=== PATIENT | male | born 1955 | race Caucasian/White ===

== ENCOUNTER 2018-08-15 11:31 | Observation (INO) | payer OTHER, SELFPAY ==
[2018-08-15 12:30] LABS: #Basophils 0.1 thou/uL (0.0-0.2); #Eosinphils 0.1 thou/uL (0.0-0.7); #Lymphocytes 2.8 thou/uL (1.20-3.40); #Monocytes 0.7 thou/uL (0.11-0.59); #Neutrophils 4.6 thou/uL (1.40-6.50); %Basophils 0.6 % (0.0-1.0); %Eosinophils 0.8 % (0.0-10.0); %Lymphocytes 34.4 % (21.0-51.0); %Monocytes 8.2 % (0.0-10.0); %Neutrophils 55.9 % (42.0-75.0); Hemoglobin 16.3 g/dL (14.0-18.0); Mean Corpuscular HGB CONC 32.1 g/dL (32.0-36.0); Mean Corpuscular Hemoglobin 32.1 pg (27.0-31.0); Mean Corpuscular Volume 99.9 fL (78.0-98.0); Mean Platelet Volume 7.9 fL (7.4-10.4); Platelet Count 231 thou/uL (130-400); RBC Distribution Width 11.6 % (11.5-14.5); White Blood Cell (WBC) Count 8.2 thou/uL (4.8-10.8)
[2018-08-15 12:46] LABS: ALT (SGPT) 80 U/L (8-55); AST (SGOT) 91 U/L (5-34); Albumin 3.6 g/dL (3.4-4.8); Alkaline Phosphatase 87 U/L (40-150); Anion Gap 10 mmol/L (10-20); BUN (Urea Nitrogen) 20 mg/dL (8.4-25.7); Bilirubin, Total 0.7 mg/dL (0.2-1.2); CK (CPK) 53 U/L (30-200); Calc. Creatinine Clearance 0 mL/min (70-130); Carbon Dioxide 25 mmol/L (23-31); Chloride 105 mmol/L (98-107); Estimated GFR-MDRD Greater than 90; Globulin 3.7 g/dL (2.4-3.5); Glucose 99 mg/dL (80-115); Potassium 4.6 mmol/L (3.5-5.1); Protein, Total 7.3 g/dL (5.8-8.1); Sodium 135 mmol/L (136-145)
[2018-08-15 12:50] LABS: CKMB 1.6 ng/mL (0-6.6); Troponin I Less than 0.010 ng/mL (< 0.028)
--- NOTE | 2018-08-15 13:08 | CT ---
CT BRAIN WITHOUT CONTRAST: Comparison: 04-17-17 History: Bilateral leg weakness that began this morning, altered mental status. Technique: Multiple contiguous axial images were obtained in a CT of the brain without contrast. FINDINGS: There are scattered hypodensities in the subcortical and periventricular white matter, likely seconda ry to small vessel ischemic disease. No large confluent infarction is seen. There is no evidence of h ydrocephalus, intracranial hemorrhage or extraaxial fluid collection. The calvarium and overlying soft tissues are unremarkable. The visualized paranasal sinuses and masto id air cells are well aerated. IMPRESSION: No evidence of acute intracranial abnormalities. POS: [facility]
[2018-08-15 13:42] LABS: Bilirubin Negative (Negative); Blood, Urine Negative (Negative); Clarity CLEAR (Clear); Glucose, Urine (Dipstick) Negative (Negative); Leukocyte Negative (Negative); Nitrite Negative (Negative); Protein, Urine (Dipstick) Negative (Neg-Trace); Specific Gravity, Urine 1.016 (1.002-1.036); pH, Urine 6.5 (5.0-9.0)
[2018-08-15 13:57] LABS: Amphetamine Not Detected (NotDetected); Barbiturates Screen Not Detected (NotDetected); Benzodiazepine Screen Not Detected (NotDetected); Cocaine Metabolite Screen Not Detected (NotDetected); Medtox Control Line Valid? VALID (VALID); Medtox Reader # READER 1; Methadone Not Detected (NotDetected); Methamphetamine Not Detected (NotDetected); Opiate Screen Not Detected (NotDetected); Oxycodone Screen Not Detected (NotDetected); Phencyclidine (PCP) Not Detected (NotDetected); THC/Cannabinoid Screen Not Detected (NotDetected); Tricyclic Screen Not Detected (NotDetected)
--- NOTE | 2018-08-15 13:58 | RAD ---
PORTABLE CHEST ONE VIEW: Date: 08-15-18 Time: 11:41 a.m. History: 63-year-old male with cough. FINDINGS: Comparison is made with exam of 02-09-2009. The heart size is normal. The lungs are well expanded without lobar consolidation, pneumothoraces or pleural effusions. Old left sided rib fractures are again noted. IMPRESSION: No radiographic evidence of acute cardiopulmonary process. POS: [facility]
[2018-08-15 14:04] LABS: Prothrombin Time 13.1 SEC (12.0-14.7)
[2018-08-15] MEDS ORDERED: Aspirin 325 MG TAB ONE (14:11)
--- NOTE | 2018-08-15 14:14 | PDOC.FPRHP ---
- History of Present Illness Chief Complaint: LLE Weakness History of Present Illness: Patient is a 63YO gentleman with a PMH significant for a prior CVA in 2008 w/ residual L-sided weakness, untreated Hepatitis C, HTN, a possible seizure disorder, and possible dementia who presented to the ED after having an episode of sudden onset LLE weakness while walking with AM. Per the patient and chart review/patient's family, the patient was walking this morning per his usual routine and suddenly felt like he could no longer bear weight in his left leg. He denies any fall or LOC and reports that the weakness lasted only for a few minutes and then resolved on its own. He denies any associated LUE weakness , headache, dysarthria, numbness, or tingling as well. ED Course: The patient received 325mg of ASA in the ED. - Allergies/Adverse Reactions Allergies Allergy/AdvReac Type Severity Reaction Status Date / Time No Known Drug Allergies Allergy Verified 08/15/18 17:04 - Home Medications Medication Instructions Recorded Confirmed Type Lisinopril [Zestril] 10 mg PO DAILY #30 tab 04/23/17 08/15/18 Rx Metoprolol Tartrate [Lopressor] 25 mg PO BID #60 tab 04/23/17 08/15/18 Rx Santyl 250 Units/Gram Ointment 1 gm TOP DAILY #1 tube 04/23/17 08/15/18 Rx [Santyl Ointment] Aspirin [Ecotrin] 81 mg PO DAILY 08/15/18 08/15/18 History - History PMHx: CVA, HFpEF, chronic hepatitis C, HTN, Dementia, possible seizure disorder PSHx: none FHx: h/o Alcoholism and cirrhosis in multiple family members per patient's sister Social: Former heavy alcohol use of ~10 beers/day per patient but quit drinking years ago. Former marijuana use. Current smoker. Has smoked ~1/2ppd since age 26. Smokes a little <1ppd currently. Lives with his sister, Nicloe, in [place]. - Review of Systems General: denies: fever/chills, weight/appetite/sleep changes Eyes: denies: vision changes ENT: denies: nasal congestion, rhinorrhea Respiratory: denies: cough, congestion, shortness of breath Cardiovascular: denies: chest pain, edema Gastrointestinal: denies: diarrhea, constipation, abdominal pain, GI bleeding Genitourinary: reports: other (no frequency). denies: dysuria Skin: reports: rashes. denies: itching Musculoskeletal: denies: swelling, arthritis/arthralgias Neurological: reports: weakness. denies: numbness, syncope Psychological: denies: anxiety, depression - Vital signs BP: 124/76 HR: 69 RR: 16 Tmax: 98.6F Pox: 94% on RA Wt: 62.6kg - Physical Exam Constitutional: NAD, other (poorly developed, awake and alert but oriented only to self) HEENT: normocephalic and atraumatic, PERRLA, EOMI, conjunctiva clear, grossly normal vision (wears glasses), grossly normal hearing, MMM, oropharynx clear Neck: supple, FROM Chest: no-tender to palpation Heart: RRR, normal S1/S2, pulses present, no edema Lungs: no respiratory distress, good air movement, no rales/rhonchi, no retractions -Lungs: expiratory wheezing in B/L upper lung goss, R>L Abdomen: soft, non-tender, bowel sounds present Musculoskeletal: normal structure, normal tone Neurological: CN II-XII intact, normal sensation -Neurological: 4/5 automobile and property underwriter strength and plantar flexion strength on the L compared to the R. Dysmetria in LUE as well. Careful, broad-based gait w/ negative Romberg's sign. Skin: good turgor, capillary refill <2 seconds, no jaundice -Skin: seborrheic dermatitis in brow between eyes and behind B/L ears; palmar erythema and spider telangiectasias noted on chest Heme/Lymphatic: no unusual bruising or bleeding, no purpura Psychiatric: normal mood and affect, other (intact recent memory from this AM) FMR H&P: Results - Labs Result Diagrams: 08/15/18 12:15 08/15/18 12:15 Lab results: WBC 8.2 thou/uL (4.8-10.8) 08/15/18 12:15 Hgb 16.3 g/dL (14.0-18.0) 08/15/18 12:15 Hct 50.9 % (42.0-52.0) 08/15/18 12:15 MCV 99.9 fL (78.0-98.0) H 08/15/18 12:15 Plt Count 231 thou/uL (130-400) 08/15/18 12:15 Neutrophils % 55.9 % (42.0-75.0) 08/15/18 12:15 Sodium 135 mmol/L (136-145) L 08/15/18 12:15 Potassium 4.6 mmol/L (3.5-5.1) 08/15/18 12:15 Chloride 105 mmol/L (98-107) 08/15/18 12:15 Carbon Dioxide 25 mmol/L (23-31) 08/15/18 12:15 BUN 20 mg/dL (8.4-25.7) 08/15/18 12:15 Creatinine 0.81 mg/dL (0.6-1.3) 08/15/18 12:15 Glucose 99 mg/dL (80-115) 08/15/18 12:15 Calcium 9.0 mg/dL (7.8-10.44) 08/15/18 12:15 Total Bilirubin 0.7 mg/dL (0.2-1.2) 08/15/18 12:15 AST 91 U/L (5-34) H 08/15/18 12:15 ALT 80 U/L (8-55) H 08/15/18 12:15 Alkaline Phosphatase 87 U/L (40-150) 08/15/18 12:15 Ammonia 38 umol/L (18-72) 08/15/18 12:15 Creatine Kinase 53 U/L (30-200) 08/15/18 12:15 CK-MB (CK-2) 1.6 ng/mL (0-6.6) 08/15/18 12:15 Serum Total Protein 7.3 g/dL (5.8-8.1) 08/15/18 12:15 Albumin 3.6 g/dL (3.4-4.8) 08/15/18 12:15 Urine Ketones Negative mg/dL (Negative) 08/15/18 13:13 Urine Blood Negative (Negative) 08/15/18 13:13 Urine Nitrite Negative (Negative) 08/15/18 13:13 Ur Leukocyte Esterase Negative (Negative) 08/15/18 13:13 - Radiology Interpretation CT scan - head Status: report reviewed by me (No acute IC process) Chest x-ray Status: report reviewed by me (no acute cardiopulmonary process) FMR H&P: A/P - Problem List (1) Left-sided weakness Current Visit: Yes Status: Resolved Code(s): R53.1 - WEAKNESS (2) Transient ischemic attack Current Visit: No Status: Suspected (3) H/O: CVA (cerebrovascular accident) Current Visit: No Status: Chronic Code(s): Z86.73 - PRSNL HX OF TIA (TIA), AND CEREB INFRC W/O RESID DEFICITS (4) HTN (hypertension) Current Visit: No Status: Chronic Code(s): I10 - ESSENTIAL (PRIMARY) HYPERTENSION (5) Hep C w/o coma, chronic Current Visit: No Status: Chronic Code(s): B18.2 - CHRONIC VIRAL HEPATITIS C (6) Tobacco abuse Current Visit: No Status: Chronic Code(s): Z72.0 - TOBACCO USE - Plan 63 YO gentleman w/ a PMH significant for a h/o a CVA, h/o EtOH abuse, chronic Hep C, and dementia who presented with the ED w/ a CC of Left lower extremity weakness that occurred this morning while walking. Transient LLE weakness 2/2 suspected TIA - Symptoms have completed resolved since arrival to the ED. - CT negative for any acute IC process. - High suspicion for possible TIA due to h/o CVA and tobacco use. - Will obtain and MRI in the AM as well as carotid doppler U/S. - Will risk stratify and obtain a Hgb A1c as well as a FLP in the AM. - Will start on QD ASA and a low dose statin due to transaminitis. - Will consult stroke team and neurology. Transaminitis - Likely 2/2 chronic untreated Hep C per history. Will obtain Hep C Ag and RNA quantitiative studies to confirm diagnosis. - Will obtain a RUQ U/S to evaluate liver closely as patient has multiple findings on clinical exam consistent w/ cirrhosis including palmar erythema and spider telangiectasias. - Will check for HIV and RPR as well. - Will continue to trend LFTs for hospital course. Dementia/cognitive impairment - Could be 2/2 vascular and/or some component of Wernicke's encephalopathy 2/2 former heavy EtOH use. - Will obtain vitamin B1, B12, and folate levels. - Also checking HIV and RPR to r/o infectious etiologies. - TSH and NH3 WNLs. - Will start on a QD multivitamin. Chronic Hepatitis C - Patient has been diagnosed with this in the past per his sister and chart review. - No records of positive tests in our EMR so will order Hep C studies for diagnosis confirmation. h/o CVA - Aware, will start on QD ASA and low dose statin. h/o EtOH Abuse - Aware, but no QD drinking for the past several years per patient's sister. - Will hold off on ASE protocol for now. - Will continue to monitor vitals closely. HTN - Will resume home meds. tobacco use - Nicotine patch. - Will encourage cessation. - Duonebs PRN. FMR H&P: Upper Level - Pertinent history Pt is a 63 year old male who presents to the ED with sudden onset left lower extremity weakness. Pt states that he is currently back to his baseline and weakness has resolved. He has a prior history of CVA in 2009 and TIA in 2017. - Pertinent findings Physical Exam: General: Alert and oriented to person and place only. Neurological: CN II-XII intact grossly; 4/5 LUE strength, 5/5 otherwise throughout. upper extremity DTRs 2+ bilaterally; downgoing babinski bilaterally ; No asterixis. Broad-based gait; negative Romberg. Skin: spider telengectasias on anterior chest Extremities: no structural abnormalities; no peripheral edema. - Plan Date/Time: 08/15/18 1414 I, Fara Rowe, have evaluated this patient and agree with findings/plan as outlined by internet marketer resident. Pertinent changes/additions are listed here. TIA/CVA rule out - will admit pt to stroke unit for obs. ASA 325 given in ED. - sudden onset, left lower extremity weakness, worse from baseline. Resolved per patient. - Non contrast CTA negative. - Risk stratification with A1C, FLP. Will add on carotid dopplers and MRI to check for acute ischemia. Cognitive dysfunction - differentials include vascular dementia, Wernicke's encephalopathy given history of alcohol abuse. - will check B12, B1, RPR. TSH/NH3 wnl. - may consider MOCA/SLUMS to assess degree of encephalopathy. Abnormal liver function tests. - possibly secondary to history of alcohol abuse vs. hepatitis C. - RUQ US. - will re-check hepatitis studies. Hypertension - will resume pt's home medications when we are able to confirm with his sister. History of alcohol abuse. - pt denies heavy drinking, but due to pt's poor ability to give history, will confirm with his sister. - consider initiating ASE protocol History of Tobacco abuse. - nicotine patch. Attending Addendum - Attending Addendum Date/Time: 08/15/182052 I personally evaluated the patient and discussed the management with Dr. Rowe and team. I agree with the History, Examination, Assessment and Plan documented above with any addition or exceptions noted below.
--- NOTE | 2018-08-15 14:19 | PDOC.FPRHP ---
- Allergies/Adverse Reactions Allergies Allergy/AdvReac Type Severity Reaction Status Date / Time No Known Drug Allergies Allergy Verified 04/18/17 03:39 - Home Medications Medication Instructions Recorded Confirmed Type Aspirin [Ecotrin Regular Strength] 325 mg PO DAILY #30 tab 04/23/17 Rx Atorvastatin Calcium [Lipitor] 40 mg PO HS #30 tab 04/23/17 Rx Lisinopril [Zestril] 10 mg PO DAILY #30 tab 04/23/17 Rx Metoprolol Tartrate [Lopressor] 25 mg PO BID #60 tab 04/23/17 Rx Santyl 250 Units/Gram Ointment 1 gm TOP DAILY #1 tube 04/23/17 Rx [Santyl Ointment] - History PMHx: PSHx: FHx: Social: - Vital signs BP: [] HR: [] RR: [] Tmax: [] Pox: []% on [] Wt: [] FMR H&P: Results - Labs Result Diagrams: 08/15/18 12:15 08/15/18 12:15 Lab results: WBC 8.2 thou/uL (4.8-10.8) 08/15/18 12:15 Hgb 16.3 g/dL (14.0-18.0) 08/15/18 12:15 Hct 50.9 % (42.0-52.0) 08/15/18 12:15 MCV 99.9 fL (78.0-98.0) H 08/15/18 12:15 Plt Count 231 thou/uL (130-400) 08/15/18 12:15 Neutrophils % 55.9 % (42.0-75.0) 08/15/18 12:15 Sodium 135 mmol/L (136-145) L 08/15/18 12:15 Potassium 4.6 mmol/L (3.5-5.1) 08/15/18 12:15 Chloride 105 mmol/L (98-107) 08/15/18 12:15 Carbon Dioxide 25 mmol/L (23-31) 08/15/18 12:15 BUN 20 mg/dL (8.4-25.7) 08/15/18 12:15 Creatinine 0.81 mg/dL (0.6-1.3) 08/15/18 12:15 Glucose 99 mg/dL (80-115) 08/15/18 12:15 Calcium 9.0 mg/dL (7.8-10.44) 08/15/18 12:15 Total Bilirubin 0.7 mg/dL (0.2-1.2) 08/15/18 12:15 AST 91 U/L (5-34) H 08/15/18 12:15 ALT 80 U/L (8-55) H 08/15/18 12:15 Alkaline Phosphatase 87 U/L (40-150) 08/15/18 12:15 Ammonia 38 umol/L (18-72) 08/15/18 12:15 Creatine Kinase 53 U/L (30-200) 08/15/18 12:15 CK-MB (CK-2) 1.6 ng/mL (0-6.6) 08/15/18 12:15 Serum Total Protein 7.3 g/dL (5.8-8.1) 08/15/18 12:15 Albumin 3.6 g/dL (3.4-4.8) 08/15/18 12:15 Urine Ketones Negative mg/dL (Negative) 08/15/18 13:13 Urine Blood Negative (Negative) 08/15/18 13:13 Urine Nitrite Negative (Negative) 08/15/18 13:13 Ur Leukocyte Esterase Negative (Negative) 08/15/18 13:13 FMR H&P: Upper Level - Plan Date/Time: 08/15/18 1410 I, [], have evaluated this patient and agree with findings/plan as outlined by internet marketing coordinator resident. Pertinent changes/additions are listed here.
[2018-08-15 14:49] LABS: Acetaminophen Less than 6.0 mcg/mL (10.0-30.0); Alcohol Less than 10 mg/dL (Less than 10); Salicylate Less than 8.0 mg/dL (15.0-30.0)
[2018-08-15] MEDS ORDERED: Ibuprofen 600 MG TAB PO PRN (16:19)
[2018-08-15 16:27] LABS: Troponin I Less than 0.010 ng/mL (< 0.028)
[2018-08-15 17:00] VITALS: BMI 20.3
[2018-08-15] MEDS: Nicotine 14 MG PATCH TD SCH (18:42)
[2018-08-15 18:55] LABS: Troponin I Less than 0.010 ng/mL (< 0.028)
[2018-08-15 19:29] LABS: Hemoglobin A1c 5.4 % (4.0-6.0)
[2018-08-15 19:58] LABS: Cardiac Risk 6.2 (Less than 4.5)
[2018-08-15] MEDS ORDERED: Simvastatin 5 MG TAB PO SCH ×2 (21:00)
[2018-08-15] MEDS: Enoxaparin Sodium 40 MG/0.4 ML SYRINGE SC SCH (21:07)
[2018-08-15] MEDS: Metoprolol Tartrate 25 MG TAB PO SCH (21:08)
[2018-08-16 05:24] LABS: ALT (SGPT) 73 U/L (8-55); AST (SGOT) 82 U/L (5-34); Albumin 3.3 g/dL (3.4-4.8); Alkaline Phosphatase 93 U/L (40-150); Anion Gap 12 mmol/L (10-20); BUN (Urea Nitrogen) 17 mg/dL (8.4-25.7); Bilirubin, Total 0.3 mg/dL (0.2-1.2); Calc. Creatinine Clearance 82 mL/min (70-130); Calcium 8.9 mg/dL (7.8-10.44); Carbon Dioxide 22 mmol/L (23-31); Chloride 105 mmol/L (98-107); Estimated GFR-MDRD Greater than 90; Globulin 3.7 g/dL (2.4-3.5); Glucose 96 mg/dL (80-115); Potassium 4.4 mmol/L (3.5-5.1); Sodium 135 mmol/L (136-145)
[2018-08-16 05:43] LABS: Syphilis Antibody Index 10.22 S/CO (<1.00 Non-Reactive)
[2018-08-16 06:03] LABS: Folate (Folic Acid) 12.2 ng/mL (7.0-31.4)
--- NOTE | 2018-08-16 06:25 | PDOC.FM ---
- Subjective Subjective: Patient was sitting up in bed eating breakfast in NAD. NAEO. Patient has no complaints this AM. - Objective MAR Reviewed: Yes Vital Signs & Weight: Vital Signs (12 hours) Temp Pulse Resp BP Pulse Ox 08/16/18 03:27 98.2 F 68 17 166/94 H 94 L 08/15/18 23:13 98.6 F 74 16 178/92 H 94 L 08/15/18 19:20 98.4 F 71 16 121/68 95 Weight Admit Weight 60.736 kg Weight 60.736 kg I&O: 08/14/18 08/15/18 08/16/18 06:59 06:59 06:59 Intake Total 555 Output Total 300 Balance 255 Result Diagrams: 08/15/18 12:15 08/16/18 04:12 <Nancy Veliz - Last Filed: 08/16/18 10:09> - Objective Vital Signs & Weight: Vital Signs (12 hours) Temp Pulse Resp BP BP Pulse Ox 08/16/18 11:33 98.9 F 62 16 114/68 93 L 08/16/18 08:03 144/96 H 08/16/18 07:33 98.6 F 64 16 144/96 H 92 L 08/16/18 03:27 98.2 F 68 17 166/94 H 94 L Weight Admit Weight 60.736 kg Weight 60.736 kg I&O: 08/15/18 08/16/18 08/17/18 06:59 06:59 06:59 Intake Total 555 280 Output Total 300 Balance 255 280 Result Diagrams: 08/15/18 12:15 08/16/18 04:12 <Celestine Dorantes - Last Filed: 08/16/18 12:33> Phys Exam - Physical Examination Constitutional: NAD HEENT: moist MMs, sclera anicteric Neck: supple, full ROM Respiratory: no rales, no rhonchi Cardiovascular: RRR, no significant murmur Gastrointestinal: soft, non-tender, positive bowel sounds Musculoskeletal: no edema, pulses present Neurological: normal sensation, moves all 4 limbs 4/5 strength in LUE compared to RUE which is 5/5 Psychiatric: normal affect Skin: normal turgor, cap refill <2 seconds Deviation from normal: seborrheic dermatitis on T zone of face and post- auricular areas <Nancy Veliz - Last Filed: 08/16/18 10:09> Dx/Plan (1) Left-sided weakness Code(s): R53.1 - WEAKNESS Status: Resolved (2) Transient ischemic attack Status: Suspected (3) H/O: CVA (cerebrovascular accident) Code(s): Z86.73 - PRSNL HX OF TIA (TIA), AND CEREB INFRC W/O RESID DEFICITS Status: Chronic (4) HTN (hypertension) Code(s): I10 - ESSENTIAL (PRIMARY) HYPERTENSION Status: Chronic (5) Hep C w/o coma, chronic Code(s): B18.2 - CHRONIC VIRAL HEPATITIS C Status: Chronic (6) Tobacco abuse Code(s): Z72.0 - TOBACCO USE Status: Chronic - Plan Plan: 63 YO gentleman w/ a PMH significant for a h/o a CVA, h/o EtOH abuse, chronic Hep C, and dementia who presented with the ED w/ a CC of Left lower extremity weakness that occurred this morning while walking. Transient LLE weakness 2/2 suspected TIA - Symptoms have completely resolved since admission. - CT negative for any acute IC process. MRI & carotid doppler U/S pending for this AM. - High suspicion for possible TIA due to h/o CVA and tobacco use. - Hgb A1c WNLs at 5.4 & FLP significant for triglycerides of 216 and total cholesterol of 180: LDL--> 108 & HDL --> 29. - Will continue QD ASA and start on high potency statin. - PT and OT consulted to see today. Transaminitis - LFTs slightly decreased compared to labs on admission. - Likely 2/2 chronic untreated Hep C per history. Hep C Ab level is high. Hep C RNA pending. - Abdominal U/S significant for heterogeneous liver echotexture w/o any focal mass suggestive of possible cirrhosis. - HIV and RPR pending. - Will continue to trend LFTs for hospital course. Dementia/cognitive impairment - Could be 2/2 vascular and/or some component of Wernicke's encephalopathy 2/2 former heavy EtOH use. - Vitamin B1 level pending. B12 & folate levels WNLs. Will check a RBC folate as well. - HIV and RPR pending. - TSH and NH3 WNLs. - Will continue QD multivitamin. - CM consulted to discuss goals of care with family and to eval for placement upon discharge. Chronic Hepatitis C - Patient has been diagnosed with this in the past per his sister and chart review. - No records of positive tests in our EMR. - initial Hep C Ab level is high. Hep C RNA pending. h/o CVA - Aware, will continue QD ASA and start on low dose high potency statin per pharmacy recs. h/o EtOH Abuse - Aware, but no QD drinking for the past several years per patient's sister. - Will hold off on ASE protocol for now. - Will continue to monitor vitals closely. HTN - Will continue home meds. tobacco use - Nicotine patch. - Will encourage cessation. - Colin PRN. Dispo: Possible d/c later today pending neuroimaging and evals from PT/OT & CM recs for dispo. <Nancy Veliz - Last Filed: 08/16/18 10:09> Attending Addendum - Attending Addendum Date/Time: 08/16/18 1233 I personally evaluated the patient and discussed the management with Dr. Veliz. I agree with the History, Examination, Assessment and Plan documented above with any addition or exceptions noted below. <Celestine Dorantes - Last Filed: 08/16/18 12:33>
[2018-08-16 06:27] LABS: Hep C IgG Ab Reflex HepC Qnt (NonReactive); Hep C Index 11.24 S/CO (0-0.79)
[2018-08-16] MEDS: Metoprolol Tartrate 25 MG TAB PO SCH ×2 (08:02→20:58)
[2018-08-16] MEDS: Multivitamin W/ Minerals 1 TAB PO SCH (08:02)
[2018-08-16] MEDS: Lisinopril 10 MG TAB PO SCH (08:03)
[2018-08-16] MEDS: Aspirin 81 mg Enteric Coated Tablet PO SCH (08:04)
[2018-08-16] MEDS: Collagenase 250 UNITS/GM Ointment 30 GM TUBE TOP SCH (08:07)
[2018-08-16] MEDS: Ketoconazole 2% Cream 15 gm Tube TOP SCH (08:08)
--- NOTE | 2018-08-16 08:09 | ULT ---
GALLBLADDER ULTRASOUND: HISTORY: Abnormal liver enzymes, bloating cirrhosis, with a history of hepatitis C and alcohol abuse. FINDINGS: Real-time imaging of the right upper quadrant was performed. This shows somewhat difficult to visual ize gallbladder due to bowel gas, but no gallstones identified. Liver parenchyma has a heterogeneous echotexture without any focal discrete mass and measures approximately 14 cm in length. Portions ar e obscured by bowel gas. The right kidney is normal in size and not obstructed. The pancreas is obscured. IMPRESSION: Heterogeneous liver echotexture without focal mass. No evidence of gallstones or biliary ductal dila tation. POS: [facility]
[2018-08-16 08:59] LABS: HIV (1/2) Antibody/Antigen Non-Reactive (NonReactive); HIV 1/2 INDEX 0.19 S/CO (<1.00)
--- NOTE | 2018-08-16 12:18 | MRI ---
MRI BRAIN WITHOUT CONTRAST: HISTORY: Bilateral leg weakness. Altered mental status. TIA. CORRELATION: The previous day's CT scan. FINDINGS: There are foci of T2 prolongation in the periventricular white matter, consistent with chronic small vessel ischemic disease. No restricted diffusion is seen. The ventricular size is appropriate, and the basilar cisterns are patent. No evidence of acute infarct, hemorrhage, midline shift, or abnorma l extraaxial fluid collections is noted. No tonsillar herniation is seen. There is mucosal disease in the paranasal sinuses. IMPRESSION: Chronic changes. No evidence of acute intracranial process. POS: [facility]
[2018-08-16 14:30] LABS: Syphilis Antibody INDETERMINATE (Nonreactive); Syphilis Titer Non-Reactive (Negative)
--- NOTE | 2018-08-16 17:23 | PDOC.EVN ---
Event Note - Event Note Event Note: Spoke with patient's son, Jaylen Erazo @ ~17:15 via telephone to confirm MPOA preference. Son stated that he would like to defer his medical decision making responsibilities to the patient's sister and track car operator, Nicole Erazo, as he is confident she will make good, safe, and appropriate medical decisions for the patient.
[2018-08-16] MEDS: Nicotine 14 MG PATCH TD SCH (17:52)
--- NOTE | 2018-08-16 19:12 | ULT ---
CAROTID ULTRASOUND: 08/16/18 HISTORY: Possible TIA . Possible CVA. COMPARISON: 02/10/09 TECHNIQUE: [place] scale, color flow, doppler imaging with spectral waveform analysis was performed of the carotid and vertebral arteries. FINDINGS: RIGHT CAROTID: Intimal thickening of the common carotid artery is 0.12 cm. There is a small amount of noncalcified p laque in the right carotid bifurcation and proximal right internal carotid artery. Peak systolic [place] of the common carotid artery is 36.7 cm/s. Peak systolic velocity of internal carotid artery is 72.9 cm/s. ICA to CCA ratio is 2.0. LEFT CAROTID: Intimal thickening of the common carotid artery is 0.07 cm. There is noncalcified plaque in the dista l common carotid artery. There is noncalcified and calcified plaque in the left carotid bifurcation a nd proximal internal carotid artery. Peak systolic velocity of the common carotid artery is 80.3 cm/s . Peak systolic velocity of internal carotid artery is 65.0 cm/s. ICA to CCA ratio is 0.80. Antegrade flow in both vertebral arteries. IMPRESSION: No sonographic evidence of hemodynamically significant stenosis. POS: [facility]
[2018-08-16] MEDS: Enoxaparin Sodium 40 MG/0.4 ML SYRINGE SC SCH (20:58)
[2018-08-16] MEDS ORDERED: Atorvastatin Calcium 40 MG TAB PO SCH (21:00)
--- NOTE | 2018-08-17 06:25 | PDOC.FM ---
- Subjective Subjective: NAEO. Patient was attempting to order breakfast via the telephone at the time of exam. Was sitting up in bed in NAD. Has no complaints this AM. - Objective MAR Reviewed: Yes Vital Signs & Weight: Vital Signs (12 hours) Temp Pulse Resp BP Pulse Ox 08/17/18 04:00 98.2 F 79 19 161/87 H 92 L 08/16/18 23:55 99.6 F 73 19 142/81 H 93 L 08/16/18 20:00 99.8 F H 78 18 155/89 H 94 L Weight Admit Weight 60.736 kg Weight 60.736 kg I&O: 08/15/18 08/16/18 08/17/18 06:59 06:59 06:59 Intake Total 555 590 Output Total 300 Balance 255 590 Result Diagrams: 08/15/18 12:15 08/17/18 06:53 <Nancy Veliz - Last Filed: 08/17/18 13:43> - Objective Vital Signs & Weight: Vital Signs (12 hours) Temp Pulse Pulse Pulse Resp BP BP 08/17/18 15:57 99.7 F H 71 20 08/17/18 11:55 99.6 F 71 20 08/17/18 10:17 76 69 126/73 08/17/18 09:44 117/73 08/17/18 08:00 98.7 F 73 20 BP BP Pulse Ox 08/17/18 15:57 107/60 92 L 08/17/18 11:55 111/68 91 L 08/17/18 10:17 110/70 08/17/18 09:44 08/17/18 08:00 106/70 90 L Weight Admit Weight 60.736 kg Weight 60.736 kg I&O: 08/16/18 08/17/18 08/18/18 06:59 06:59 06:59 Intake Total 555 590 480 Output Total 300 Balance 255 590 480 Result Diagrams: 08/15/18 12:15 08/17/18 06:53 <Celestine Dorantes - Last Filed: 08/17/18 16:01> Phys Exam - Physical Examination Constitutional: NAD HEENT: moist MMs, sclera anicteric Neck: supple, full ROM Respiratory: no wheezing, no rales, no rhonchi, clear to auscultation bilateral Cardiovascular: RRR, no significant murmur Gastrointestinal: soft, no distention, positive bowel sounds Musculoskeletal: no edema Neurological: normal sensation, moves all 4 limbs 4/5 strength in LUE compared to the R Psychiatric: normal affect Skin: normal turgor, cap refill <2 seconds Deviation from normal: improving seborrheic dermatitis on T zone of face and post-auricular areas <Nancy Veliz - Last Filed: 08/17/18 13:43> Dx/Plan (1) Left-sided weakness Code(s): R53.1 - WEAKNESS Status: Resolved (2) Transient ischemic attack Status: Acute (3) H/O: CVA (cerebrovascular accident) Code(s): Z86.73 - PRSNL HX OF TIA (TIA), AND CEREB INFRC W/O RESID DEFICITS Status: Chronic (4) HTN (hypertension) Code(s): I10 - ESSENTIAL (PRIMARY) HYPERTENSION Status: Chronic (5) Hep C w/o coma, chronic Code(s): B18.2 - CHRONIC VIRAL HEPATITIS C Status: Chronic (6) Tobacco abuse Code(s): Z72.0 - TOBACCO USE Status: Chronic (7) Dementia Code(s): F03.90 - UNSPECIFIED DEMENTIA WITHOUT BEHAVIORAL DISTURBANCE Status: Acute - Plan Plan: 63 YO gentleman w/ a PMH significant for a h/o a CVA, h/o EtOH abuse, chronic Hep C, and dementia who presented with the ED w/ a CC of Left lower extremity weakness that occurred this morning while walking. Transient LLE weakness 2/2 suspected TIA - Symptoms have completely resolved since admission. - CT & MRI negative for any acute IC process. Carotid dopplers showed no HD significant stenosis. - Sxs therefore mostly likely 2/2 a TIA due to h/o CVA and tobacco use. - Hgb A1c WNLs at 5.4 & FLP significant for triglycerides of 216 and total cholesterol of 180: LDL--> 108 & HDL --> 29. - Will continue QD ASA and pediatric genetic counselor on need to be on a high potency statin. - PT recommended home w/ HH PT. Dementia/cognitive impairment - Likely 2/2 vascular and/or some component of Wernicke's encephalopathy 2/2 former heavy EtOH use. - Vitamin B1 level pending. B12 & folate levels WNLs. Will check a RBC folate as well. - HIV nonreactive and RPR indeterminate. FTA-ABS pending for confirmation. - TSH and NH3 WNLs. - Will continue QD multivitamin. - CM met with family/patient's sister to assist with resources upon discharge. - Patient has consistently been oriented only to self since admission and had been determined to lack the mental capacity to make the best and most appropriate medical decisions for himself. Legal MPOA is on, Jaylenmichelle Erazo, who has deferred these responsibilities to patient's sister and trailer body assembler, Nicole Erazo. Hyperkalemia - K of 5.2 this AM. - Patient completely asymptomatic on exam. - Will continue to monitor. Transaminitis - LFTs have continued to downtrend since admission. - Likely 2/2 chronic untreated Hep C per history. Hep C Ab level is high. Hep C RNA pending. - Abdominal U/S significant for heterogeneous liver echotexture w/o any focal mass suggestive of possible cirrhosis. - Will continue to trend LFTs for hospital course. Chronic Hepatitis C - Patient has been diagnosed with this in the past per his sister and chart review. - No records of positive tests in our EMR. - Initial Hep C Ab level is high. Hep C RNA pending. h/o CVA - Aware, will continue QD ASA and encourage patient to take a low dose high potency statin per pharmacy recs. h/o EtOH Abuse - Aware, but no QD drinking for the past several years per patient's sister. - Will hold off on ASE protocol for now. - Will continue to monitor vitals closely. HTN - Will continue home meds. tobacco use - Nicotine patch. - Will encourage cessation. - Colin PRN. Dispo: Likely d/c home later today with HH for PT once patient has established w / a PCP. <Nancy Veliz - Last Filed: 08/17/18 13:43> Attending Addendum - Attending Addendum Date/Time: 08/17/18 1601 I personally evaluated the patient and discussed the management with Dr. Veliz. I agree with the History, Examination, Assessment and Plan documented above with any addition or exceptions noted below. <Celestine Dorantes - Last Filed: 08/17/18 16:01>
[2018-08-17 07:19] LABS: ALT (SGPT) 64 U/L (8-55); AST (SGOT) 57 U/L (5-34); Albumin 3.5 g/dL (3.4-4.8); Alkaline Phosphatase 78 U/L (40-150); Anion Gap 12 mmol/L (10-20); BUN (Urea Nitrogen) 21 mg/dL (8.4-25.7); Bilirubin, Total 1.2 mg/dL (0.2-1.2); Calc. Creatinine Clearance 63 mL/min (70-130); Calcium 9.4 mg/dL (7.8-10.44); Carbon Dioxide 25 mmol/L (23-31); Chloride 102 mmol/L (98-107); Estimated GFR-MDRD 72; Globulin 3.7 g/dL (2.4-3.5); Glucose 119 mg/dL (80-115); Potassium 5.2 mmol/L (3.5-5.1); Protein, Total 7.2 g/dL (5.8-8.1); Sodium 134 mmol/L (136-145)
[2018-08-17] MEDS: Metoprolol Tartrate 25 MG TAB PO SCH (09:43)
[2018-08-17] MEDS: Multivitamin W/ Minerals 1 TAB PO SCH (09:43)
[2018-08-17] MEDS: Lisinopril 10 MG TAB PO SCH (09:44)
[2018-08-17] MEDS: Ketoconazole 2% Cream 15 gm Tube TOP SCH (09:45)
[2018-08-17] MEDS: Aspirin 81 mg Enteric Coated Tablet PO SCH (09:45)
[2018-08-17] MEDS: Collagenase 250 UNITS/GM Ointment 30 GM TUBE TOP SCH (09:45)
[2018-08-17] MEDS ORDERED: Lisinopril 10 MG TAB PO SCH (10:12)
[2018-08-17 14:23] LABS: Folate,Hemolysate 542.1 ng/mL (Not Estab.); Hematocrit 47.4 % (37.5-51.0); RBC Folate Test Component 1144 ng/mL (>498)
[2018-08-17 15:59] VITALS: BP 107/60; TEMP 99.7
[2018-08-17] MEDS: Nicotine 14 MG PATCH TD SCH (17:46)
[2018-08-18 19:17] LABS: HCV log10 6.057 (.); Hep C PCR-Quant 1140000 IU/mL (.)
--- NOTE | 2018-08-20 21:28 | EKG ---
Test Reason : Blood Pressure : / mmHG Vent. Rate : 069 BPM Atrial Rate : 069 BPM P-R Int : 152 ms QRS Dur : 082 ms QT Int : 432 ms P-R-T Axes : 038 -12 032 degrees QTc Int : 462 ms Normal sinus rhythm Normal ECG Confirmed by ADALBERTO GARCIA MD ([id number]), online editor BRUNA PALMA ([id number]) on 08/20/2018 9:28:03 PM Referred By: Confirmed By:ADALBERTO GARCIA MD
== END 2018-08-17 17:35 | disposition home health service (06) ==
LOC: ERS 11:31 → 2SE 16:10
PROVIDERS: ADMIT Family Medicine; ATTEND Family Medicine
DX: R53.1 Weakness (principal); I10 Essential (primary) hypertension; B18.2 Chronic viral hepatitis C; F17.200 Nicotine dependence, unspecified, uncomplicated; Z86.73 Personal history of transient ischemic attack (TIA), and cerebral infarction without residual deficits; Z79.82 Long term (current) use of aspirin; Z79.899 Other long term (current) drug therapy
CPT/HCPCS: 36415; 70450; 70551; 71045; 76705; 80053; 80061; 80306; 80307; 81003; 82140; 82550; 82553; 82607; 82746; 82747; 83036; 84425; 84443; 84484; 85014; 85025; 85610; 85730; 86593; 86780; 86803; 87389; 87522; 90471; 90686; 90732; 93005; 93880; 96372; G0008; G0009; G0378; G8978-GP-CJ; G8979-GP-CI; G8987-GO-CK; G8988-GO-CJ; G9168-GN-CL; G9169-GN-CL; J1650

== ENCOUNTER 2018-11-03 09:09 | Outpatient (CLI) | payer MEDICAID ==
--- NOTE | 2018-11-03 11:16 | ULT ---
ULTRASOUND OF PALPABLE ABNORMALITY IN THE LOWER BACK REGION TECHNIQUE: Real-time imaging in the area of concern is performed. FINDINGS: This is an area just slightly to the right of midline in the lower back region, which is visible on d irect clinical examination. The area in question is a circumscribed, oblong-shaped area of lower att enuation than muscle or skin, measuring approximately 8 mm in diameter and 5 cm in length. This does not show any internal flow and appears lower in attenuation than the adjacent fat. It also does not have a typical appearance of a fluid density collection or a typical appearance for a hematoma, alth ough this would be a somewhat more remote possibility. IMPRESSION: Benign appearing density, corresponding to the palpable abnormality. It does not have defining ultra sound characteristics, but does not show any vascular flow by color or Doppler wave analysis, and fee l this would be best observed clinically. If it does increase in size, then consideration for other imaging or further workup would be suggested. POS: OFF
== END 2018-11-03 09:10 | disposition home or self-care (01) ==
LOC: BICULT 09:09
DX: R22.2 Localized swelling, mass and lump, trunk (principal)
CPT/HCPCS: 76999

== ENCOUNTER 2018-11-16 08:57 | Emergency (ER) | payer MEDICAID ==
[2018-11-16 09:32] LABS: #Basophils 0.1 thou/uL (0.0-0.2); #Eosinphils 0.1 thou/uL (0.0-0.7); #Lymphocytes 2.3 thou/uL (1.20-3.40); #Monocytes 1.3 thou/uL (0.11-0.59); #Neutrophils 7.4 thou/uL (1.40-6.50); %Basophils 0.8 % (0.0-1.0); %Eosinophils 0.5 % (0.0-10.0); %Lymphocytes 20.9 % (21.0-51.0); %Monocytes 11.5 % (0.0-10.0); %Neutrophils 66.2 % (42.0-75.0); Hemoglobin 16.3 g/dL (14.0-18.0); Mean Corpuscular HGB CONC 33.4 g/dL (32.0-36.0); Mean Corpuscular Hemoglobin 33.7 pg (27.0-31.0); Mean Platelet Volume 8.2 fL (7.4-10.4); Platelet Count 194 thou/uL (130-400); RBC Distribution Width 11.2 % (11.5-14.5); Red Blood Cell (RBC) Count 4.84 mill/uL (4.70-6.10); White Blood Cell (WBC) Count 11.2 thou/uL (4.8-10.8)
[2018-11-16 10:01] LABS: ALT (SGPT) 42 U/L (8-55); AST (SGOT) 42 U/L (5-34); Albumin 3.1 g/dL (3.4-4.8); Alkaline Phosphatase 134 U/L (40-150); Anion Gap 13 mmol/L (10-20); BUN (Urea Nitrogen) 19 mg/dL (8.4-25.7); Bilirubin, Total 0.3 mg/dL (0.2-1.2); Calc. Creatinine Clearance 0 mL/min (70-130); Calcium 9.4 mg/dL (7.8-10.44); Carbon Dioxide 23 mmol/L (23-31); Chloride 109 mmol/L (98-107); Estimated GFR-MDRD Greater than 90; Globulin 3.9 g/dL (2.4-3.5); Glucose 113 mg/dL (80-115); Potassium 4.1 mmol/L (3.5-5.1); Sodium 141 mmol/L (136-145)
--- NOTE | 2018-11-16 10:19 | RAD ---
RADIOGRAPH CHEST 1 VIEW: HISTORY: 63-year-old male with cough. FINDINGS: There are no air space densities, pulmonary edema, pneumothorax, or cardiomegaly. The lateral costop hrenic angles are sharp. IMPRESSION: No acute cardiopulmonary findings. emperatriz POS: LOGAN
[2018-11-16 10:32] LABS: Bilirubin Negative (Negative); Blood, Urine Negative (Negative); Clarity CLEAR (Clear); Glucose, Urine (Dipstick) 100 mg/dL (Negative); Leukocyte Negative (Negative); Nitrite Negative (Negative); Protein, Urine (Dipstick) Negative (Neg-Trace); Specific Gravity, Urine 1.026 (1.002-1.036); pH, Urine 6.5 (5.0-9.0)
--- NOTE | 2018-11-21 05:49 | PQF ---
[facility] POST DISCHARGE CLINICAL DOCUMENTATION IMPROVEMENT CLARIFICATION FORM l Todays Date: 11/19/18 l Patients Name Miguel Ángel Erazo l l Admit Date 11/16/2018 l Disch Date 11/16/2018 Foreign Service Teacher Name Vivek Jana [email or web address] To be completed by Foreign Service Teacher: Present Clinical Indicators - Signs / Symptoms Results and Location in Medical Record [ ] Documentation of: [ ] [ ] Documentation of: [ ] [ ] Documentation of: [ ] [ ] Documentation of: [ ] [ ] Risks [ ] [ ] [ ] Treatment [ ] BRONCHITIS MISSING SPECIFICITY FOR BRONCHITIS WHETHER ACUTE OR CHRONIC. [ ] [ ] To be completed by Physician MD Dowling Tiffany The documentation in this patients record requires clarification to ensure coding compliance and accuracy. Check the appropriate box and include in your discharge summary. [ ] [ ] [ ] [ ] Please check this box if this does not apply to this patient [ ] Unable to determine [ ] Other diagnosis: Review the following information and exercise your independent professional judgment in responding to the clarification. Based upon the clinical findings, risk factors, and treatment, please clarify if you are treating one of the above probable or suspected diagnoses. Physician Signature: Date Time MTDD
--- NOTE | 2018-11-26 18:44 | EKG ---
Test Reason : Blood Pressure : / mmHG Vent. Rate : 072 BPM Atrial Rate : 072 BPM P-R Int : 120 ms QRS Dur : 084 ms QT Int : 416 ms P-R-T Axes : 002 -05 020 degrees QTc Int : 455 ms Normal sinus rhythm Normal ECG Confirmed by SHALOM DAVIS ([id number]), writer editor BRUNA PALMA ([id number]) on 11/26/2018 6:43:56 PM Referred By: Confirmed By:SHALOM DAVIS
== END 2018-11-16 12:54 | disposition home or self-care (01) ==
LOC: ERS 08:57
DX: J40 Bronchitis, not specified as acute or chronic (principal); R10.9 Unspecified abdominal pain; F17.210 Nicotine dependence, cigarettes, uncomplicated; Z79.899 Other long term (current) drug therapy; Z86.73 Personal history of transient ischemic attack (TIA), and cerebral infarction without residual deficits
CPT/HCPCS: 36415; 71045; 80053; 81003; 84484; 85025; 87804; 93005; J7620

== ENCOUNTER 2019-04-26 13:55 | Emergency (ER) | payer MEDICAID ==
--- NOTE | 2019-04-26 16:02 | RAD ---
FRONTAL VIEW CHEST: COMPARISON: 11/16/2018. INDICATION: Emergency exam, fall with pain. FINDINGS: Lungs are clear. No effusion or pneumothorax. Cardiac silhouette is normal in size. There are vasc ular calcifications. Chronic-appearing posterolateral left rib deformities are seen. There is stabl e mild blunting of the lateral left costophrenic sulcus. IMPRESSION: No focal consolidation. POS: OFF
== END 2019-04-26 17:12 | disposition home or self-care (01) ==
LOC: ERS 13:55
DX: M25.561 Pain in right knee (principal); R05 Cough; R50.9 Fever, unspecified; F17.210 Nicotine dependence, cigarettes, uncomplicated; W19.XXXA Unspecified fall, initial encounter
CPT/HCPCS: 71045

== ENCOUNTER 2021-08-26 19:11 | Inpatient (IN) | payer MEDICARE, MEDICAID ==
[2021-08-26] MEDS ORDERED: Magnesium 2 GM/50 ML BAG (IN WATER) ONE (19:27)
[2021-08-26] MEDS ORDERED: Dexamethasone 10 MG/ML VIAL ONE ×2 (19:27→20:06)
[2021-08-26 19:47] LABS: Actual Bicarbonate (HCO3a) 10.3 mEq/L (22-28); Analyzer IN Cardio ER; Base Excess (BEa) -11.3 mEq/L (-2.0 to +3.0); Calcium, Ionized (arterial) 1.12 mmol/L (1.12-1.30); Carboxyhemoglobin (COHb) 0.5 gm% (0.0-3.0); Hemoglobin (Hb) 15.6 g/dL (14.0-18.0); O2 Tension (PaO2), arterial 106.8 mmHg (> 80.0); Potassium - ABG Lab 5.39 mmol/L (3.70-5.30)
[2021-08-26 19:54] LABS: Puncture Site LRA
[2021-08-26 21:08] LABS: Bilirubin Negative (Negative); Blood, Urine 1+ (Negative); Clarity Turbid (Clear); Glucose, Urine (Dipstick) Normal (Negative); Ketone, Urine Negative (Negative); Leukocyte 500 Leu/uL (Negative); Nitrite Negative (Negative); Protein, Urine (Dipstick) 20 mg/dL (Neg-Trace); Renal Epithelial 0-3 HPF (None Seen); Specific Gravity, Urine 1.012 (1.002-1.036); Squamous Epithelial None Seen HPF (0-3); Urobilinogen Normal mg/dL (Less than 2); WBC/HPF Greater than 50 HPF (0-3); pH, Urine 5.5 (5.0-9.0)
[2021-08-26 21:14] LABS: Bacteria/HPF 1+ HPF (None Seen)
[2021-08-26 21:30] LABS: Hemoglobin 15.7 g/dL (14.0-18.0); Mean Corpuscular HGB CONC 32.3 g/dL (32.0-36.0); Mean Corpuscular Hemoglobin 34.2 pg (27.0-31.0); Mean Platelet Volume 8.2 fL (7.4-10.4); Platelet Count 175 thou/uL (130-400); RBC Distribution Width 12.8 % (11.5-14.5); Red Blood Cell (RBC) Count 4.59 mill/uL (4.70-6.10); White Blood Cell (WBC) Count 29.7 thou/uL (4.8-10.8)
[2021-08-26 21:31] LABS: ALT (SGPT) 124 U/L (8-55); AST (SGOT) 330 U/L (5-34); Alkaline Phosphatase 162 U/L (40-110); Anion Gap 29 mmol/L (10-20); BUN (Urea Nitrogen) 99 mg/dL (8.4-25.7); Bilirubin, Total 1.9 mg/dL (0.2-1.2); CK (CPK) 235 U/L (30-200); Calc. Creatinine Clearance 0 mL/min (70-130); Carbon Dioxide 13 mmol/L (23-31); Chloride 100 mmol/L (98-107); Globulin 4.1 g/dL (2.4-3.5); Glucose 95 mg/dL (80-115); Lipase 771 U/L (8-78); Potassium 5.8 mmol/L (3.5-5.1); Protein, Total 7.1 g/dL (5.8-8.1); Sodium 136 mmol/L (136-145)
[2021-08-26] MEDS ORDERED: Ketorolac Tromethamine 30 MG/ML VIAL ONE (21:34)
[2021-08-26] MEDS ORDERED: Fentanyl 100 MCG/2 ML VIAL ONE (21:34)
[2021-08-26 21:52] LABS: CKMB 5.2 ng/mL (0-6.6)
[2021-08-26] MEDS ORDERED: Cefepime 2 GM VIAL ONE (21:55)
[2021-08-26 22:17] LABS: Band 21 % (5-11); Lymphocytes 10 % (21-51); MDiff Complete? YES; Macrocytosis SLIGHT = 6-15 cells (100X) (0-5/hpf); Monocytes 7 % (0-10); Neutrophil 62 % (42-75)
[2021-08-26 22:26] LABS: SARS-CoV-2 NAA Rapid Test Not Detected (NotDetected)
[2021-08-26] MEDS ORDERED: Enoxaparin Sodium 60 MG/0.6 ML SYRINGE ONE (22:31)
[2021-08-26] MEDS ORDERED: Vancomycin 1 GM/200 ML BAG ONE (23:12)
[2021-08-27 00:11] LABS: Lactic Acid 4.8 mmol/L (0.5-2.2)
[2021-08-27] MEDS ORDERED: Clindamycin/D5W 900 MG in Premix Bag 1 BAG IVPB SCH (00:11)
[2021-08-27] MEDS ORDERED: Meropenem 1 GM in Sodium Chloride 0.9% 100 ML IVPB SCH ×2 (00:18→00:29)
[2021-08-27] MEDS ORDERED: Ondansetron ODT 4 MG TAB PO PRN (00:30)
[2021-08-27] MEDS ORDERED: Ondansetron PF 4 MG/2 ML Vial IVP PRN (00:30)
[2021-08-27] MEDS ORDERED: Acetaminophen 325 MG TAB PO PRN (00:30)
[2021-08-27] MEDS ORDERED: Acetaminophen 650 MG Suppository PR PRN (00:30)
[2021-08-27] MEDS ORDERED: MEROPENEM 1 GM/50 ML 1 GM in Premix Bag 1 BAG IVPB SCH (00:45)
[2021-08-27] MEDS: Sodium Chloride 0.9% 1,000 ML IV SCH ×3 (01:00→16:39)
[2021-08-27 03:36] LABS: Lactic Acid 3.2 mmol/L (0.5-2.2)
[2021-08-27 03:39] LABS: Anion Gap 16 mmol/L (10-20); BUN (Urea Nitrogen) 104 mg/dL (8.4-25.7); Calc. Creatinine Clearance 17 mL/min (70-130); Calcium 7.9 mg/dL (7.8-10.44); Carbon Dioxide 17 mmol/L (23-31); Chloride 112 mmol/L (98-107); Glucose 124 mg/dL (80-115); Potassium 4.7 mmol/L (3.5-5.1); Sodium 140 mmol/L (136-145)
[2021-08-27 04:32] LABS: Mean Corpuscular HGB CONC 33.6 g/dL (32.0-36.0); Mean Corpuscular Hemoglobin 35.2 pg (27.0-31.0); Mean Platelet Volume 8.4 fL (7.4-10.4); Platelet Count 121 thou/uL (130-400); RBC Distribution Width 12.6 % (11.5-14.5); White Blood Cell (WBC) Count 29.5 thou/uL (4.8-10.8)
[2021-08-27 04:33] LABS: Band 29 % (5-11); Lymphocytes 8 % (21-51); MDiff Complete? YES; Monocytes 5 % (0-10); Neutrophil 58 % (42-75)
[2021-08-27] MEDS ORDERED: Doxycycline 100 MG in Syringe 0 ML IVPB SCH (05:05)
[2021-08-27 05:26] LABS: ALT (SGPT) 428 U/L (8-55); AST (SGOT) 1636 U/L (5-34); Albumin 2.3 g/dL (3.4-4.8); Alkaline Phosphatase 136 U/L (40-110); Bilirubin, Direct 0.8 mg/dL (0.1-0.3); Bilirubin, Total 1.1 mg/dL (0.2-1.2); Protein, Total 5.4 g/dL (5.8-8.1)
[2021-08-27] MEDS ORDERED: Enoxaparin Sodium 40 MG/0.4 ML SYRINGE SC SCH ×2 (06:45→09:00)
[2021-08-27 07:56] LABS: Lactic Acid 2.2 mmol/L (0.5-2.2)
[2021-08-27] MEDS ORDERED: FLU VACC QS2021-22(65YR UP)/PF 240 MCG/0.7 ML SYRINGE IM ONE (09:00)
[2021-08-27] MEDS ORDERED: VANCOMYCIN 1.25 GM/250 ML BAG 1.25 GM in Premix Bag 1 BAG IVPB SCH (09:00)
[2021-08-27] MEDS ORDERED: Enoxaparin Sodium 60 MG/0.6 ML SYRINGE SC SCH ×2 (09:00→21:00)
[2021-08-27] MEDS: Meropenem 500 MG in Sodium Chloride 0.9% 100 ML IVPB SCH ×2 (12:41→23:32)
[2021-08-27 13:04] LABS: Lactic Acid 1.7 mmol/L (0.5-2.2)
[2021-08-27 13:05] LABS: ALT (SGPT) 468 U/L (8-55); AST (SGOT) 1330 U/L (5-34); Albumin 2.3 g/dL (3.4-4.8); Alkaline Phosphatase 137 U/L (40-110); Bilirubin, Direct 0.7 mg/dL (0.1-0.3); Protein, Total 5.5 g/dL (5.8-8.1)
[2021-08-28 02:25] LABS: Hemoglobin 12.9 g/dL (14.0-18.0); Mean Corpuscular HGB CONC 33.8 g/dL (32.0-36.0); Mean Corpuscular Hemoglobin 35.7 pg (27.0-31.0); Mean Platelet Volume 8.6 fL (7.4-10.4); Platelet Count 130 thou/uL (130-400); RBC Distribution Width 12.8 % (11.5-14.5); White Blood Cell (WBC) Count 24.9 thou/uL (4.8-10.8)
[2021-08-28 02:33] LABS: INR-International Normal Ratio 1.4; Prothrombin Time 17.6 sec (12.0-14.7)
[2021-08-28 02:54] LABS: Band 26 % (5-11); Lymphocytes 5 % (21-51); MDiff Complete? YES; Monocytes 3 % (0-10); Myelocyte 1 % (0-0); Neutrophil 65 % (42-75)
[2021-08-28 02:55] LABS: ALT (SGPT) 361 U/L (8-55); AST (SGOT) 636 U/L (5-34); Albumin 2.1 g/dL (3.4-4.8); Alkaline Phosphatase 135 U/L (40-110); Bilirubin, Direct 0.6 mg/dL (0.1-0.3); Protein, Total 5.1 g/dL (5.8-8.1)
[2021-08-28] MEDS: Sodium Chloride 0.9% 1,000 ML IV SCH ×3 (02:56→21:12)
[2021-08-28] MEDS ORDERED: Vancomycin 1 GM in Premix Bag 1 BAG IVPB SCH (03:00)
[2021-08-28] MEDS ORDERED: Vancomycin HCl 750 MG in Sodium Chloride 0.9% 250 ML 250 ML IVPB SCH (03:00)
[2021-08-28 03:07] LABS: Acetaminophen Less than 6.0 mcg/mL (10.0-30.0); Anion Gap 12 mmol/L (10-20); BUN (Urea Nitrogen) 73 mg/dL (8.4-25.7); Calc. Creatinine Clearance 36 mL/min (70-130); Calcium 8.1 mg/dL (7.8-10.44); Carbon Dioxide 21 mmol/L (23-31); Chloride 120 mmol/L (98-107); Glucose 125 mg/dL (80-115); Potassium 4.1 mmol/L (3.5-5.1); Sodium 149 mmol/L (136-145)
[2021-08-28 03:26] LABS: HBCM Index 0.08 S/CO (0-0.79); HBSAg Index 0.28 S/CO (0-0.99); Hep A IgM AB Non-Reactive (NonReactive); Hep A IgM S/CO 0.08 S/CO (0-0.79); Hep B Surf Ag Non-Reactive S/CO (NonReactive); Hepatitis B Core IgM Abs Non-Reactive (NonReactive)
[2021-08-28 03:36] LABS: Hep C IgG Ab Reflex HepC Qnt (NonReactive); Hep C Index 11.98 S/CO (0-0.79)
[2021-08-28] MEDS: Enoxaparin Sodium 40 MG/0.4 ML SYRINGE SC SCH (08:18)
[2021-08-28] MEDS: Famotidine/PF 20 mg/2ml Vial SLOW IVP SCH (09:41)
[2021-08-28] MEDS: hydrALAZINE 20 MG/ML VIAL SLOW IVP PRN ×2 (11:01→21:25)
[2021-08-28] MEDS: MEROPENEM 1 GM/50 ML 1 GM in Premix Bag 1 BAG IVPB SCH ×2 (11:05→23:36)
[2021-08-28] MEDS: Amino Acids 4.25 %/Dextrose 5% 1,000 ML IV SCH (15:01)
[2021-08-28] MEDS ORDERED: Dextrose 5% in Water 1,000 ML IV SCH (15:15)
[2021-08-29] MEDS: Amino Acids 4.25 %/Dextrose 5% 1,000 ML IV SCH ×2 (02:03→16:11)
[2021-08-29 03:06] LABS: Vancomycin, Random 9.9 ug/mL (See Comment)
[2021-08-29 03:26] LABS: Band 19 % (5-11); Hemoglobin 12.4 g/dL (14.0-18.0); Lymphocytes 9 % (21-51); MDiff Complete? YES; Macrocytosis SLIGHT = 6-15 cells (100X) (0-5/hpf); Mean Corpuscular Hemoglobin 35.3 pg (27.0-31.0); Mean Platelet Volume 8.5 fL (7.4-10.4); Monocytes 8 % (0-10); Neutrophil 64 % (42-75); Platelet Count 107 thou/uL (130-400); Platelet Morphology Comment Appears Decreased; White Blood Cell (WBC) Count 22.9 thou/uL (4.8-10.8)
[2021-08-29] MEDS: Vancomycin HCl 750 MG in Sodium Chloride 0.9% 250 ML 250 ML IVPB SCH (03:45)
[2021-08-29] MEDS: Famotidine/PF 20 mg/2ml Vial SLOW IVP SCH (08:34)
[2021-08-29] MEDS: Sodium Chloride 0.9% 1,000 ML IV SCH ×2 (08:34→19:39)
[2021-08-29] MEDS: Enoxaparin Sodium 40 MG/0.4 ML SYRINGE SC SCH (08:34)
[2021-08-29] MEDS: MEROPENEM 1 GM/50 ML 1 GM in Premix Bag 1 BAG IVPB SCH ×2 (12:31→23:29)
[2021-08-29 12:37] VITALS: BMI 18.3
[2021-08-29] MEDS: hydrALAZINE 20 MG/ML VIAL SLOW IVP PRN (19:37)
[2021-08-30] MEDS ORDERED: Lorazepam 2 MG/ML VIAL SLOW IVP PRN (00:19)
[2021-08-30] MEDS: Amino Acids 4.25 %/Dextrose 5% 1,000 ML IV SCH ×2 (03:31→18:44)
[2021-08-30] MEDS: Vancomycin HCl 750 MG in Sodium Chloride 0.9% 250 ML 250 ML IVPB SCH (03:32)
[2021-08-30 07:08] LABS: Hemoglobin 11.7 g/dL (14.0-18.0); Mean Corpuscular HGB CONC 32.1 g/dL (32.0-36.0); Mean Corpuscular Hemoglobin 34.1 pg (27.0-31.0); RBC Distribution Width 12.8 % (11.5-14.5); Red Blood Cell (RBC) Count 3.43 mill/uL (4.70-6.10)
[2021-08-30 07:46] LABS: Band 5 % (5-11); Lymphocytes 9 % (21-51); MDiff Complete? YES; Mean Platelet Volume 9.3 fL (7.4-10.4); Monocytes 11 % (0-10); Neutrophil 70 % (42-75); Platelet Count 87 thou/uL (130-400); Platelet Morphology Comment Appears Decreased; Polychromasia SLIGHT = 2-3 cells (100X) (0-2/hpf); Reactive Lymphocytes 5 % (0-10); Vacuoles SLIGHT; White Blood Cell (WBC) Count 20.3 thou/uL (4.8-10.8)
[2021-08-30] MEDS: Famotidine/PF 20 mg/2ml Vial SLOW IVP SCH (09:19)
[2021-08-30] MEDS: Enoxaparin Sodium 40 MG/0.4 ML SYRINGE SC SCH (09:19)
[2021-08-30] MEDS: hydrALAZINE 20 MG/ML VIAL SLOW IVP PRN (13:04)
[2021-08-30] MEDS: MEROPENEM 1 GM/50 ML 1 GM in Premix Bag 1 BAG IVPB SCH (13:08)
[2021-08-30] MEDS: Sodium Chloride 0.9% 1,000 ML IV SCH (13:16)
[2021-08-30 18:14] LABS: Smooth Muscle Total ABS 11 Units (0-19)
[2021-08-30 20:36] LABS: HCV I.Units 17400000 IU/mL (.); HCV I.Units log10 7.241 (.); Hep C PCR-Quant See Final Results IU/mL (.)
[2021-08-31] MEDS: MEROPENEM 1 GM/50 ML 1 GM in Premix Bag 1 BAG IVPB SCH ×3 (00:15→23:01)
[2021-08-31] MEDS: hydrALAZINE 20 MG/ML VIAL SLOW IVP PRN ×2 (00:27→20:39)
[2021-08-31] MEDS: Sodium Chloride 0.9% 1,000 ML IV SCH ×2 (00:34→14:56)
[2021-08-31] MEDS: Vancomycin HCl 750 MG in Sodium Chloride 0.9% 250 ML 250 ML IVPB SCH (04:00)
[2021-08-31 04:19] LABS: Vancomycin, Trough 6.5 ug/mL
[2021-08-31 04:21] LABS: ALT (SGPT) 134 U/L (8-55); AST (SGOT) 108 U/L (5-34); Albumin 1.9 g/dL (3.4-4.8); Alkaline Phosphatase 115 U/L (40-110); Anion Gap 9 mmol/L (10-20); BUN (Urea Nitrogen) 40 mg/dL (8.4-25.7); Bilirubin, Total 2.5 mg/dL (0.2-1.2); Calc. Creatinine Clearance 79 mL/min (70-130); Calcium 7.8 mg/dL (7.8-10.44); Carbon Dioxide 22 mmol/L (23-31); Chloride 116 mmol/L (98-107); Glucose 118 mg/dL (80-115); Potassium 3.5 mmol/L (3.5-5.1); Protein, Total 4.9 g/dL (5.8-8.1); Sodium 143 mmol/L (136-145)
[2021-08-31] MEDS ORDERED: Vancomycin HCl 750 MG in Sodium Chloride 0.9% 250 ML 250 ML IVPB SCH (05:00)
[2021-08-31 05:01] LABS: Band 10 % (5-11); Hemoglobin 12.2 g/dL (14.0-18.0); Lymphocytes 8 % (21-51); MDiff Complete? YES; Macrocytosis SLIGHT = 6-15 cells (100X) (0-5/hpf); Mean Corpuscular HGB CONC 32.4 g/dL (32.0-36.0); Mean Corpuscular Hemoglobin 34.7 pg (27.0-31.0); Metamyelocyte 1 % (0-0); Monocytes 5 % (0-10); Myelocyte 2 % (0-0); Neutrophil 73 % (42-75); Nucleated RBC 1 % (0); Platelet Count 80 thou/uL (130-400); Platelet Morphology Comment Appears Decreased; RBC Distribution Width 13.2 % (11.5-14.5); Reactive Lymphocytes 1 % (0-10); Red Blood Cell (RBC) Count 3.52 mill/uL (4.70-6.10); White Blood Cell (WBC) Count 21.6 thou/uL (4.8-10.8)
[2021-08-31] MEDS: Amino Acids 4.25 %/Dextrose 5% 1,000 ML IV SCH (07:06)
[2021-08-31] MEDS: Famotidine/PF 20 mg/2ml Vial SLOW IVP SCH (07:52)
[2021-08-31] MEDS: Enoxaparin Sodium 40 MG/0.4 ML SYRINGE SC SCH (07:56)
[2021-08-31] MEDS ORDERED: MEROPENEM 1 GM/50 ML 1 GM in Premix Bag 1 BAG IVPB SCH (08:00)
[2021-08-31] MEDS ORDERED: cefTRIAXone\\ROCEPHIN 2 GM in Sodium Chloride 0.9% 100 ML IVPB SCH (14:00)
[2021-08-31] MEDS ORDERED: metroNIDAZOLE 500 MG TAB PO SCH (15:00)
[2021-08-31 15:20] LABS: ANA Symphony (Qualitative) Negative (Negative); ANA Symphony (Quantitative) 0.2 Ratio (< 0.7 Negative); EliA Vaculitis New Method **** NEW METHOD ****; Mitochondrial Ab 0.8 U/mL (<4 Negative); dsDNA IgG Antibody 1.2 IU/mL (<10 Negative)
[2021-08-31] MEDS ORDERED: metroNIDAZOLE 500 MG in Premix Bag 1 BAG IVPB SCH (22:00)
[2021-09-01] MEDS: hydrALAZINE 20 MG/ML VIAL SLOW IVP PRN ×3 (06:13→23:27)
[2021-09-01] MEDS: Sodium Chloride 0.9% 1,000 ML IV SCH ×2 (06:13→15:10)
[2021-09-01 07:03] LABS: Hemoglobin 12.5 g/dL (14.0-18.0); Mean Corpuscular HGB CONC 33.7 g/dL (32.0-36.0); Mean Corpuscular Hemoglobin 35.9 pg (27.0-31.0); Mean Platelet Volume 9.8 fL (7.4-10.4); Platelet Count 77 thou/uL (130-400); RBC Distribution Width 13.4 % (11.5-14.5); Red Blood Cell (RBC) Count 3.48 mill/uL (4.70-6.10); White Blood Cell (WBC) Count 18.8 thou/uL (4.8-10.8)
[2021-09-01 07:06] LABS: Anion Gap 7 mmol/L (10-20); BUN (Urea Nitrogen) 36 mg/dL (8.4-25.7); Calc. Creatinine Clearance 85 mL/min (70-130); Calcium 7.7 mg/dL (7.8-10.44); Carbon Dioxide 23 mmol/L (23-31); Chloride 118 mmol/L (98-107); Glucose 114 mg/dL (80-115); Potassium 3.4 mmol/L (3.5-5.1); Sodium 145 mmol/L (136-145)
[2021-09-01 08:06] LABS: Band 6 % (5-11); Lymphocytes 9 % (21-51); MDiff Complete? YES; Metamyelocyte 1 % (0-0); Monocytes 5 % (0-10); Neutrophil 78 % (42-75); Platelet Morphology Comment Appears Decreased; Polychromasia SLIGHT = 2-3 cells (100X) (0-2/hpf); Reactive Lymphocytes 1 % (0-10)
[2021-09-01] MEDS: Famotidine/PF 20 mg/2ml Vial SLOW IVP SCH (08:08)
[2021-09-01] MEDS: MEROPENEM 1 GM/50 ML 1 GM in Premix Bag 1 BAG IVPB SCH ×3 (08:09→23:27)
[2021-09-01] MEDS: Amino Acids 4.25 %/Dextrose 5% 1,000 ML IV SCH (19:07)
[2021-09-02] MEDS: Sodium Chloride 0.9% 1,000 ML IV SCH ×3 (01:27→18:41)
[2021-09-02] MEDS: Amino Acids 4.25 %/Dextrose 5% 1,000 ML IV SCH ×2 (06:48→19:06)
[2021-09-02 07:32] LABS: INR-International Normal Ratio 1.3; Prothrombin Time 16.1 sec (12.0-14.7)
[2021-09-02 07:33] LABS: PTT 31.3 sec (22.9-36.1)
[2021-09-02] MEDS: MEROPENEM 1 GM/50 ML 1 GM in Premix Bag 1 BAG IVPB SCH ×2 (08:09→16:06)
[2021-09-02] MEDS: Famotidine/PF 20 mg/2ml Vial SLOW IVP SCH (08:10)
[2021-09-02] MEDS ORDERED: Fentanyl 100 MCG/2 ML VIAL ONE (10:02)
[2021-09-02] MEDS ORDERED: Midazolam HCl 2 mg/2 ml Vial ONE (10:02)
[2021-09-02] MEDS ORDERED: Sodium Bicarbonate 2.5 MEQ/5 ML VIAL ONE (10:02)
[2021-09-02] MEDS: hydrALAZINE 20 MG/ML VIAL SLOW IVP PRN ×2 (16:28→23:16)
[2021-09-02] MEDS: Meropenem 1 GM in Sodium Chloride 0.9% 100 ML IVPB SCH (23:16)
[2021-09-03] MEDS: Meropenem 1 GM in Sodium Chloride 0.9% 100 ML IVPB SCH ×3 (07:31→23:29)
[2021-09-03] MEDS: Famotidine/PF 20 mg/2ml Vial SLOW IVP SCH (07:31)
[2021-09-03] MEDS: Amino Acids 4.25 %/Dextrose 5% 1,000 ML IV SCH ×2 (07:31→20:54)
[2021-09-03] MEDS: Sodium Chloride 0.9% 1,000 ML IV SCH ×2 (10:41→20:53)
[2021-09-03 11:12] LABS: SARS-CoV-2 PCR by NAA Not Detected (NotDetected)
[2021-09-03 14:46] LABS: #Basophils 0.1 thou/uL (0.0-0.2); #Eosinphils 0.2 thou/uL (0.0-0.7); #Lymphocytes 1.8 thou/uL (1.20-3.40); #Neutrophils 11.8 thou/uL (1.40-6.50); %Basophils 0.4 % (0.0-1.0); %Lymphocytes 12.1 % (21.0-51.0); %Monocytes 6.5 % (0.0-10.0); Hemoglobin 13.1 g/dL (14.0-18.0); Mean Corpuscular HGB CONC 32.9 g/dL (32.0-36.0); Mean Corpuscular Hemoglobin 35.6 pg (27.0-31.0); Platelet Count 102 thou/uL (130-400); RBC Distribution Width 14.4 % (11.5-14.5); Red Blood Cell (RBC) Count 3.69 mill/uL (4.70-6.10); White Blood Cell (WBC) Count 14.7 thou/uL (4.8-10.8)
[2021-09-03 15:05] LABS: Anion Gap 8 mmol/L (10-20); BUN (Urea Nitrogen) 28 mg/dL (8.4-25.7); Calc. Creatinine Clearance 91 mL/min (70-130); Calcium 7.6 mg/dL (7.8-10.44); Carbon Dioxide 23 mmol/L (23-31); Chloride 115 mmol/L (98-107); Glucose 107 mg/dL (80-115); Potassium 3.5 mmol/L (3.5-5.1); Sodium 142 mmol/L (136-145)
[2021-09-03 15:14] LABS: Heparin-Induced Ab (HITA) 0.161 OD (0.000-0.400)
[2021-09-04] MEDS: Meropenem 1 GM in Sodium Chloride 0.9% 100 ML IVPB SCH ×3 (09:31→23:36)
[2021-09-04] MEDS: Famotidine/PF 20 mg/2ml Vial SLOW IVP SCH ×2 (09:31→20:35)
[2021-09-04] MEDS: hydrALAZINE 20 MG/ML VIAL SLOW IVP PRN (10:34)
[2021-09-04 12:13] LABS: #Eosinphils 0.2 thou/uL (0.0-0.7); #Monocytes 1.3 thou/uL (0.11-0.59); %Basophils 0.2 % (0.0-1.0); %Lymphocytes 11.4 % (21.0-51.0); %Monocytes 7.4 % (0.0-10.0); %Neutrophils 80.1 % (42.0-75.0); Hemoglobin 14.5 g/dL (14.0-18.0); Mean Corpuscular HGB CONC 32.8 g/dL (32.0-36.0); Mean Corpuscular Hemoglobin 35.5 pg (27.0-31.0); Mean Platelet Volume 10.5 fL (7.4-10.4); Platelet Count 96 thou/uL (130-400); RBC Distribution Width 14.3 % (11.5-14.5); Red Blood Cell (RBC) Count 4.09 mill/uL (4.70-6.10); White Blood Cell (WBC) Count 17.5 thou/uL (4.8-10.8)
[2021-09-04] MEDS: Sodium Chloride 0.9% 1,000 ML IV SCH ×2 (12:22→23:44)
[2021-09-04 12:40] LABS: ALT (SGPT) 57 U/L (8-55); AST (SGOT) 111 U/L (5-34); Albumin 1.7 g/dL (3.4-4.8); Alkaline Phosphatase 233 U/L (40-110); Anion Gap 11 mmol/L (10-20); BUN (Urea Nitrogen) 29 mg/dL (8.4-25.7); Bilirubin, Total 2.9 mg/dL (0.2-1.2); Calc. Creatinine Clearance 92 mL/min (70-130); Calcium 7.8 mg/dL (7.8-10.44); Carbon Dioxide 16 mmol/L (23-31); Chloride 116 mmol/L (98-107); Globulin 3.8 g/dL (2.4-3.5); Glucose 117 mg/dL (80-115); Potassium 3.4 mmol/L (3.5-5.1); Protein, Total 5.5 g/dL (5.8-8.1); Sodium 140 mmol/L (136-145)
[2021-09-05] MEDS: Famotidine/PF 20 mg/2ml Vial SLOW IVP SCH ×2 (08:52→20:29)
[2021-09-05] MEDS: Meropenem 1 GM in Sodium Chloride 0.9% 100 ML IVPB SCH ×2 (08:52→17:12)
[2021-09-05] MEDS: Sodium Chloride 0.9% 1,000 ML IV SCH (14:18)
[2021-09-06] MEDS: Meropenem 1 GM in Sodium Chloride 0.9% 100 ML IVPB SCH ×3 (01:06→15:56)
[2021-09-06] MEDS: Sodium Chloride 0.9% 1,000 ML IV SCH (03:30)
[2021-09-06 08:00] LABS: #Basophils 0.1 thou/uL (0.0-0.2); #Eosinphils 0.2 thou/uL (0.0-0.7); #Monocytes 1.3 thou/uL (0.11-0.59); #Neutrophils 13.5 thou/uL (1.40-6.50); %Basophils 0.3 % (0.0-1.0); %Eosinophils 1.1 % (0.0-10.0); %Lymphocytes 11.7 % (21.0-51.0); %Monocytes 7.7 % (0.0-10.0); %Neutrophils 79.2 % (42.0-75.0); Hemoglobin 12.5 g/dL (14.0-18.0); Mean Corpuscular HGB CONC 33.1 g/dL (32.0-36.0); Mean Corpuscular Hemoglobin 35.9 pg (27.0-31.0); Mean Platelet Volume 10.4 fL (7.4-10.4); Platelet Count 102 thou/uL (130-400); RBC Distribution Width 14.3 % (11.5-14.5); Red Blood Cell (RBC) Count 3.47 mill/uL (4.70-6.10); White Blood Cell (WBC) Count 17.1 thou/uL (4.8-10.8)
[2021-09-06 08:15] LABS: Anion Gap 8 mmol/L (10-20); BUN (Urea Nitrogen) 26 mg/dL (8.4-25.7); Calc. Creatinine Clearance 84 mL/min (70-130); Calcium 7.6 mg/dL (7.8-10.44); Carbon Dioxide 23 mmol/L (23-31); Chloride 119 mmol/L (98-107); Glucose 124 mg/dL (80-115); Potassium 3.8 mmol/L (3.5-5.1); Sodium 146 mmol/L (136-145)
[2021-09-06 08:17] LABS: ALT (SGPT) 64 U/L (8-55); AST (SGOT) 125 U/L (5-34); Albumin 1.6 g/dL (3.4-4.8); Alkaline Phosphatase 335 U/L (40-110); Bilirubin, Direct 1.3 mg/dL (0.1-0.3); Bilirubin, Total 1.9 mg/dL (0.2-1.2); Protein, Total 5.1 g/dL (5.8-8.1)
[2021-09-06] MEDS: hydrALAZINE 20 MG/ML VIAL SLOW IVP PRN (09:10)
[2021-09-06] MEDS: Famotidine/PF 20 mg/2ml Vial SLOW IVP SCH ×2 (09:11→20:48)
[2021-09-06] MEDS: Dextrose 5% w/ 20 mEq KCl 1,000 ML IV SCH (10:55)
[2021-09-06] MEDS ORDERED: Iopamidol-370 76% 500 ML 1 ML ONE (13:07)
[2021-09-07] MEDS: Meropenem 1 GM in Sodium Chloride 0.9% 100 ML IVPB SCH ×4 (00:26→23:02)
[2021-09-07] MEDS: Dextrose 5% w/ 20 mEq KCl 1,000 ML IV SCH ×3 (05:33→23:03)
[2021-09-07 06:51] LABS: Anion Gap 8 mmol/L (10-20); BUN (Urea Nitrogen) 27 mg/dL (8.4-25.7); Calc. Creatinine Clearance 84 mL/min (70-130); Calcium 7.6 mg/dL (7.8-10.44); Carbon Dioxide 25 mmol/L (23-31); Chloride 116 mmol/L (98-107); Glucose 116 mg/dL (80-115); Potassium 4.2 mmol/L (3.5-5.1); Sodium 145 mmol/L (136-145)
[2021-09-07 06:52] LABS: ALT (SGPT) 81 U/L (8-55); AST (SGOT) 165 U/L (5-34); Albumin 1.6 g/dL (3.4-4.8); Alkaline Phosphatase 375 U/L (40-110); Bilirubin, Direct 1.1 mg/dL (0.1-0.3); Bilirubin, Total 1.6 mg/dL (0.2-1.2)
[2021-09-07 08:14] LABS: #Basophils 0.1 thou/uL (0.0-0.2); #Eosinphils 0.2 thou/uL (0.0-0.7); #Lymphocytes 1.8 thou/uL (1.20-3.40); %Basophils 0.4 % (0.0-1.0); %Eosinophils 1.6 % (0.0-10.0); %Lymphocytes 12.7 % (21.0-51.0); %Monocytes 7.1 % (0.0-10.0); %Neutrophils 78.1 % (42.0-75.0); Hemoglobin 11.7 g/dL (14.0-18.0); Mean Corpuscular HGB CONC 32.5 g/dL (32.0-36.0); Mean Corpuscular Hemoglobin 35.4 pg (27.0-31.0); Mean Platelet Volume 10.6 fL (7.4-10.4); Platelet Count 100 thou/uL (130-400); RBC Distribution Width 14.2 % (11.5-14.5); Red Blood Cell (RBC) Count 3.31 mill/uL (4.70-6.10); White Blood Cell (WBC) Count 14.1 thou/uL (4.8-10.8)
[2021-09-07] MEDS: Famotidine/PF 20 mg/2ml Vial SLOW IVP SCH ×2 (08:28→20:04)
[2021-09-08] MEDS: Meropenem 1 GM in Sodium Chloride 0.9% 100 ML IVPB SCH ×3 (08:47→23:08)
[2021-09-08] MEDS: Famotidine/PF 20 mg/2ml Vial SLOW IVP SCH ×2 (08:53→20:17)
[2021-09-08 09:47] LABS: #Eosinphils 0.3 thou/uL (0.0-0.7); #Monocytes 1.1 thou/uL (0.11-0.59); #Neutrophils 7.8 thou/uL (1.40-6.50); %Basophils 0.4 % (0.0-1.0); %Eosinophils 2.7 % (0.0-10.0); %Lymphocytes 17.8 % (21.0-51.0); %Monocytes 9.8 % (0.0-10.0); %Neutrophils 69.3 % (42.0-75.0); Hemoglobin 11.3 g/dL (14.0-18.0); Mean Corpuscular HGB CONC 31.8 g/dL (32.0-36.0); Mean Corpuscular Hemoglobin 34.7 pg (27.0-31.0); Mean Platelet Volume 10.8 fL (7.4-10.4); Platelet Count 102 thou/uL (130-400); RBC Distribution Width 14.1 % (11.5-14.5); Red Blood Cell (RBC) Count 3.26 mill/uL (4.70-6.10); White Blood Cell (WBC) Count 11.2 thou/uL (4.8-10.8)
[2021-09-08 10:03] LABS: Anion Gap 7 mmol/L (10-20); BUN (Urea Nitrogen) 26 mg/dL (8.4-25.7); Calc. Creatinine Clearance 83 mL/min (70-130); Calcium 7.8 mg/dL (7.8-10.44); Carbon Dioxide 26 mmol/L (23-31); Chloride 111 mmol/L (98-107); Glucose 114 mg/dL (80-115); Potassium 4.8 mmol/L (3.5-5.1); Sodium 139 mmol/L (136-145)
[2021-09-08 10:04] LABS: ALT (SGPT) 99 U/L (8-55); AST (SGOT) 197 U/L (5-34); Albumin 1.5 g/dL (3.4-4.8); Alkaline Phosphatase 448 U/L (40-110); Bilirubin, Total 1.6 mg/dL (0.2-1.2); Protein, Total 5.2 g/dL (5.8-8.1)
[2021-09-09 07:08] LABS: #Basophils 0.1 thou/uL (0.0-0.2); #Eosinphils 0.3 thou/uL (0.0-0.7); #Lymphocytes 2.3 thou/uL (1.20-3.40); #Monocytes 0.8 thou/uL (0.11-0.59); #Neutrophils 6.7 thou/uL (1.40-6.50); %Basophils 0.6 % (0.0-1.0); %Eosinophils 3.4 % (0.0-10.0); %Monocytes 8.1 % (0.0-10.0); %Neutrophils 65.8 % (42.0-75.0); Hemoglobin 12.2 g/dL (14.0-18.0); Mean Corpuscular Hemoglobin 34.8 pg (27.0-31.0); Mean Platelet Volume 11.1 fL (7.4-10.4); Platelet Count 113 thou/uL (130-400); RBC Distribution Width 13.9 % (11.5-14.5); Red Blood Cell (RBC) Count 3.49 mill/uL (4.70-6.10); White Blood Cell (WBC) Count 10.2 thou/uL (4.8-10.8)
[2021-09-09] MEDS: Meropenem 1 GM in Sodium Chloride 0.9% 100 ML IVPB SCH ×3 (08:54→23:22)
[2021-09-09] MEDS: Famotidine/PF 20 mg/2ml Vial SLOW IVP SCH ×2 (09:00→20:26)
[2021-09-09] MEDS: Furosemide 20 MG/2 ML VIAL SLOW IVP SCH (20:26)
[2021-09-10] MEDS ORDERED: Spironolactone 100 MG TAB PER TUBE SCH (08:00)
[2021-09-10] MEDS: Famotidine/PF 20 mg/2ml Vial SLOW IVP SCH (09:03)
[2021-09-10] MEDS: Meropenem 1 GM in Sodium Chloride 0.9% 100 ML IVPB SCH (09:03)
[2021-09-10] MEDS: Furosemide 20 MG/2 ML VIAL SLOW IVP SCH (09:04)
[2021-09-10 11:48] VITALS: BP 147/97; TEMP 98.3
== END 2021-09-10 16:10 | disposition hospice, home (50) | DRG 871 ==
LOC: ERS 19:11 → CCU 22:42 → T4-B 08-28 21:23
PROVIDERS: ADMIT Student in an Organized Health Care Education/Training Program; ATTEND Internal Medicine
PROC: 02HV33Z Insertion of Infusion Device into Superior Vena Cava, Percutaneous Approach (ICD-10-PCS; principal; 2021-08-26)
PROC: 3E0333Z Introduction of Anti-inflammatory into Peripheral Vein, Percutaneous Approach (ICD-10-PCS; 2021-08-26)
PROC: 0DH67UZ Insertion of Feeding Device into Stomach, Via Natural or Artificial Opening (ICD-10-PCS; 2021-09-03)
DX: A41.9 Sepsis, unspecified organism (principal); G93.41 Metabolic encephalopathy; K85.90 Acute pancreatitis without necrosis or infection, unspecified; Z20.822 Contact with and (suspected) exposure to COVID-19; K72.00 Acute and subacute hepatic failure without coma; J96.20 Acute and chronic respiratory failure, unspecified whether with hypoxia or hypercapnia; J69.0 Pneumonitis due to inhalation of food and vomit; J85.2 Abscess of lung without pneumonia; E43 Unspecified severe protein-calorie malnutrition; N17.9 Acute kidney failure, unspecified; N39.0 Urinary tract infection, site not specified; E87.2 Acidosis; E87.0 Hyperosmolality and hypernatremia; Z68.1 Body mass index [BMI] 19.9 or less, adult; I69.954 Hemiplegia and hemiparesis following unspecified cerebrovascular disease affecting left non-dominant side; R65.20 Severe sepsis without septic shock; E87.5 Hyperkalemia; E86.0 Dehydration; F03.90 Unspecified dementia, unspecified severity, without behavioral disturbance, psychotic disturbance, mood disturbance, and anxiety; L89.90 Pressure ulcer of unspecified site, unspecified stage; E78.5 Hyperlipidemia, unspecified; I10 Essential (primary) hypertension; B18.2 Chronic viral hepatitis C; F17.210 Nicotine dependence, cigarettes, uncomplicated; I25.10 Atherosclerotic heart disease of native coronary artery without angina pectoris; F10.10 Alcohol abuse, uncomplicated; R13.12 Dysphagia, oropharyngeal phase; E87.8 Other disorders of electrolyte and fluid balance, not elsewhere classified; R29.6 Repeated falls; T17.908A Unspecified foreign body in respiratory tract, part unspecified causing other injury, initial encounter; Q63.1 Lobulated, fused and horseshoe kidney; R16.0 Hepatomegaly, not elsewhere classified; Z91.81 History of falling; Z79.82 Long term (current) use of aspirin; Z95.5 Presence of coronary angioplasty implant and graft; Z78.1 Physical restraint status
CPT/HCPCS: 36415; 36416; 36556; 36600; 51701; 70450; 71045; 71250; 71260; 74018; 74170; 74177; 74181; 74230; 76700; 78802; 80048; 80053; 80074; 80076; 80143; 80202; 81003; 81015; 82105; 82378; 82550; 82553; 82805; 83516; 83605; 83690; 83880; 84443; 84484; 85025; 85379; 85610; 85730; 86038; 86225; 87040; 87086; 87522; 87902; 93005; 93970; 94660; 96365; 96367; 96372; 96375; 80307; A4641; J0360; J0692; J0696; J1100; J1642; J1650; J1885; J1940; J1956; J2060; J2185; J2250; J3010; J3370; J3475; J3480; J3490; J7050; Q9967; S0028; U0002; U0003; U0005